=== PATIENT | female | born 1985 | race Caucasian/White ===

== ENCOUNTER → 2017-06-06 | Outpatient (CLI) | payer OTHER ==
[~2017-06-06] MED LIST: ACET1TAB17 PO; COPA1INJ SC; IBUP1TAB7 PO; LORT5TAB PO; NICO14DI3 TD; SUPETAB25 PO; VITA500055 PO; XANA0.5T PO
[2017-06-06 13:08] LABS: BASO # 0.1 10^3/uL (0.0-0.2); BASO % 0.9 % (0.0-1.0); EOS # 0.4 10^3/uL (0.0-0.50); IMMATURE GRANULOCYTE % 0.3 % (0-0); LYMPH # 1.6 10^3/uL (1.5-4.5); LYMPH % 27.8 % (24.0-44.0); MEAN CORPUSCULAR HEMOGLOBIN 29.7 pg (27.0-33.0); MEAN CORPUSCULAR HGB CONC 33.6 g/dl (32.0-36.5); MEAN CORPUSCULAR VOLUME 88.3 fl (80.0-96.0); MONO # 0.4 10^3/uL (0.0-0.8); MONO % 7.5 % (0.0-5.0); NEUTROPHILS # 3.3 10^3/uL (1.8-7.7); NEUTROPHILS % 56.5 % (36.0-66.0); PLATELET COUNT, AUTOMATED 340 10^3/uL (150-450); RED CELL DISTRIBUTION WIDTH 12.9 % (11.5-14.5); WHITE BLOOD COUNT 5.8 10^3/uL (4.0-10.0)
[2017-06-06 13:18] LABS: ALBUMIN 3.7 GM/DL (3.2-5.2); ALBUMIN/GLOBULIN RATIO 1.06 (1.00-1.93); ALKALINE PHOSPHATASE 69 U/L (45-117); ALT/SGPT 41 U/L (12-78); ANION GAP 7 MEQ/L (8-16); AST/SGOT 17 U/L (7-37); BILIRUBIN,TOTAL 0.2 MG/DL (0.2-1.0); BLOOD UREA NITROGEN 12 MG/DL (7-18); CALCIUM LEVEL 9.1 MG/DL (8.5-10.1); CARBON DIOXIDE LEVEL 28 MEQ/L (21-32); CHLORIDE LEVEL 104 MEQ/L (98-107); CREATININE FOR GFR 0.85 MG/DL (0.55-1.02); GLOMERULAR FILTRATION RATE > 60.0 (>60); GLUCOSE, FASTING 80 MG/DL (70-105); SODIUM LEVEL 139 MEQ/L (136-145); TOTAL PROTEIN 7.2 GM/DL (6.4-8.2)
== END ==
LOC: M LAB 12:25
PROVIDERS: ATTEND Nurse Practitioner
DX: G35 Multiple sclerosis (principal)

== ENCOUNTER 2018-05-17 12:50 | Emergency (ER) | payer OTHER ==
[2018-05-17 13:56] LABS: BASO % 0.6 % (0.0-1.0); EOS # 0.2 10^3/uL (0.0-0.50); HEMOGLOBIN 13.9 g/dl (12.0-15.5); IMMATURE GRANULOCYTE % 0.2 % (0-3.0); LYMPH # 1.6 10^3/uL (1.5-4.5); LYMPH % 24.3 % (24.0-44.0); MEAN CORPUSCULAR HEMOGLOBIN 30.5 pg (27.0-33.0); MEAN CORPUSCULAR HGB CONC 34.8 g/dl (32.0-36.5); MEAN CORPUSCULAR VOLUME 87.9 fl (80.0-96.0); MONO # 0.3 10^3/uL (0.0-0.8); MONO % 4.4 % (0.0-5.0); NEUTROPHILS # 4.3 10^3/uL (1.8-7.7); NEUTROPHILS % 67.5 % (36.0-66.0); PLATELET COUNT, AUTOMATED 369 10^3/uL (150-450); RED BLOOD COUNT 4.55 10^6/uL (4.00-5.40); RED CELL DISTRIBUTION WIDTH 12.2 % (11.5-14.5); WHITE BLOOD COUNT 6.4 10^3/uL (4.0-10.0)
[2018-05-17] MEDS: MORPHINE 2 MG/ML 1ML SYRINGE (J2270) IV (14:00)
[2018-05-17 14:14] LABS: INR 1.02; PROTHROMBIN TIME 13.5 SECONDS (12.1-14.4)
[2018-05-17 14:15] LABS: CONTROL LINE HCG INT CTR LINE PRESENT; HCG, SERUM QUALITATIVE NEGATIVE (NEGATIVE); PARTIAL THROMBOPLASTIN TIME 29.7 SECONDS (25.4-37.6)
[2018-05-17 14:18] LABS: ANION GAP 7 MEQ/L (8-16); BLOOD UREA NITROGEN 12 MG/DL (7-18); CALCIUM LEVEL 9.1 MG/DL (8.5-10.1); CARBON DIOXIDE LEVEL 25 MEQ/L (21-32); CHLORIDE LEVEL 105 MEQ/L (98-107); CK-MB VALUE MASS < 1.0 NG/ML (<3.6); CPK CREATINE PHOSPHOKINASE 102 U/L (26-192); CREATININE FOR GFR 0.76 MG/DL (0.55-1.30); GLOMERULAR FILTRATION RATE > 60.0 (>60); GLUCOSE, FASTING 99 MG/DL (70-100); MB/CK RELATIVE INDEX 0.98 (< OR =4); SODIUM LEVEL 137 MEQ/L (136-145); TROPONIN I < 0.02 NG/ML (< 0.10)
[2018-05-17] MEDS ORDERED: ISOVUE-370 76% 100ML VIAL (Q9967) As Ordered (14:36)
== END 2018-05-17 16:12 | disposition home or self-care (01) ==
LOC: M ED 12:50
DX: S29.012A Strain of muscle and tendon of back wall of thorax, initial encounter (principal); J43.9 Emphysema, unspecified; X58.XXXA Exposure to other specified factors, initial encounter; Y92.89 Other specified places as the place of occurrence of the external cause; G35 Multiple sclerosis; F41.9 Anxiety disorder, unspecified; F17.200 Nicotine dependence, unspecified, uncomplicated; Z79.899 Other long term (current) drug therapy
CPT/HCPCS: Q9967

== ENCOUNTER → 2018-05-17 | Outpatient (CLI) | payer OTHER | LOC: M LRY 11:30 | DX: R06.02 Shortness of breath (principal) | CPT/HCPCS: 71046 ==

== ENCOUNTER 2018-10-02 18:31 | Emergency (ER) | payer OTHER ==
[~2018-10-02] VITALS: Ht 162.6 cm; Wt 81.4 kg
[~2018-10-02 18:31] MED LIST changes: -ACET1TAB17 PO; +ACET1TAB55 PO; +CLON1TAB8; +PARO40TA2; +[UNRECOGNIZED DRUG - CODE]
[2018-10-02 18:32] VITALS: BP 137/83
[2018-10-02] MEDS ORDERED: GILE1CAP (18:42)
[2018-10-02] MEDS ORDERED: CLON0.5T8 (18:42)
[2018-10-02 20:26] LABS: HEMATOCRIT 36.4 % (36.0-47.0); HEMOGLOBIN 12.5 g/dl (12.0-15.5); MEAN CORPUSCULAR HEMOGLOBIN 30.2 pg (27.0-33.0); MEAN CORPUSCULAR HGB CONC 34.3 g/dl (32.0-36.5); MEAN CORPUSCULAR VOLUME 87.9 fl (80.0-96.0); PLATELET COUNT, AUTOMATED 323 10^3/uL (150-450); RED BLOOD COUNT 4.14 10^6/uL (4.00-5.40); WHITE BLOOD COUNT 5.7 10^3/uL (4.0-10.0)
[2018-10-02 20:41] LABS: HCG, SERUM QUALITATIVE NEGATIVE (NEGATIVE)
[2018-10-02 20:48] LABS: AMPHETAMINES LEVEL URINE NEGATIVE (NEGATIVE); BARBITURATES URINE NEGATIVE (NEGATIVE); BENZODIAZEPINES URINE NEGATIVE (NEGATIVE); CANNABINOIDS URINE POSITIVE (NEGATIVE); COCAINE METABOLITE URINE NEGATIVE (NEGATIVE); METHADONE URINE NEGATIVE (NEGATIVE); OPIATES URINE NEGATIVE (NEGATIVE); PHENCYCLIDINE URINE NEGATIVE (NEGATIVE)
[2018-10-02 21:11] LABS: ACETAMINOPHEN LEVEL < 2.0 UG/ML (10.0-30.0); ALBUMIN 3.9 GM/DL (3.2-5.2); ALT/SGPT 24 U/L (12-78); BILIRUBIN,DIRECT < 0.1 MG/DL (0.0-0.2); BILIRUBIN,TOTAL 0.2 MG/DL (0.2-1.0); BLOOD UREA NITROGEN 11 MG/DL (7-18); CALCIUM LEVEL 8.5 MG/DL (8.5-10.1); CARBON DIOXIDE LEVEL 24 MEQ/L (21-32); CHLORIDE LEVEL 107 MEQ/L (98-107); CREATININE FOR GFR 0.74 MG/DL (0.55-1.30); ETHYL ALCOHOL (ETHANOL) 0.003 % (0.000-0.010); GLOMERULAR FILTRATION RATE > 60.0 (>60); GLUCOSE, FASTING 101 MG/DL (70-100); POTASSIUM SERUM 3.8 MEQ/L (3.5-5.1); SALICYLATE LEVEL < 1.7 MG/DL (5.0-30.0); SODIUM LEVEL 138 MEQ/L (136-145); THYROID STIMULATING HORMONE 0.562 uIU/ML (0.358-3.740); TOTAL PROTEIN 7.4 GM/DL (6.4-8.2)
[2018-10-02] MEDS ORDERED: clonazePAM 1 MG TAB PO ONE (22:30)
== END 2018-10-02 22:53 | disposition home or self-care (01) ==
LOC: M ED 18:31
DX: F43.0 Acute stress reaction (principal); G35 Multiple sclerosis; Z79.899 Other long term (current) drug therapy
CPT/HCPCS: 36415; 80048; 80076; 80307; 84443; 84703; 85027; 99284; G0480

== ENCOUNTER → 2018-10-08 | Outpatient (CLI) | payer OTHER ==
[~2018-10-08] MED LIST changes: +CLON0.5T8; +GILE1CAP
--- NOTE | 2018-10-08 16:03 | REP ---
RIGHT BREAST MAMMOGRAM WITH 3D TOMOSYNTHESIS AND RIGHT BREAST ULTRASOUND: Right breast mammogram performed with 3D tomosynthesis. There is reportedly a history of recent palpable lump in the region of 12 o'clock. There are no prior studies. Moderately dense fibroglandular tissue is present in the right breast. No mass or clustered microcalcifications are seen. Real-time sonographic evaluation of right breast performed in the region of 11 to 1 o'clock. Dense fibroglandular tissue is seen without a cystic or solid nodule. IMPRESSION: BIRADS 2: BI-RADS/ACR category 2 mammogram. Benign Findings. Dense breast parenchyma. No mammographic or sonographic evidence of a mass in the region of the palpable lump superiorly in the right breast. No mass or clustered microcalcifications elsewhere in the right breast. Baseline bilateral mammogram recommended at age 39. This mammogram was interpreted with the aid of an FDA-approved computer-aided detection system. The patient states she/he had a clinical breast exam in 09/2018. The patient letter being requested is M2. Schuyler lifetime risk of breast cancer 9.7%. Electronically Signed by Luis Barnes MD 10/08/2018 04:36 P
== END ==
LOC: M RAD 13:19
PROVIDERS: ATTEND Family Medicine
DX: Z86.018 Personal history of other benign neoplasm (principal)
CPT/HCPCS: 76642; 77065; G0279

== ENCOUNTER 2020-06-29 10:05 | Emergency (ER) | payer OTHER ==
[~2020-06-29] VITALS: Ht 160 cm; Wt 87.0 kg
[~2020-06-29 10:05] MED LIST changes: +CLON0.5T2; -CLON0.5T8; -PARO40TA2; +PARO40TA2 PO
[2020-06-29 10:07] VITALS: BP 147/74
--- NOTE | 2020-06-29 10:40 | REP ---
INDICATION: Left rib pain/r/o pneumo COMPARISON: 05/17/2018 TECHNIQUE: PA and lateral. FINDINGS: The mediastinum and cardiac silhouette are normal. The lung currie are clear and without acute consolidation, effusion, or pneumothorax. The skeletal structures are intact and normal. IMPRESSION: No acute cardiopulmonary process. <Electronically signed by Chaz Bautista > 06/29/20 1037
[2020-06-29] MEDS ORDERED: CYCL-707 PO (10:54)
[2020-06-29] MEDS ORDERED: KETOROLAC 60MG 2ML VIAL IM ONE (11:00)
== END 2020-06-29 11:59 | disposition home or self-care (01) ==
LOC: M ED 10:05
DX: S29.012A Strain of muscle and tendon of back wall of thorax, initial encounter (principal); X50.0XXA Overexertion from strenuous movement or load, initial encounter; Y92.9 Unspecified place or not applicable; Y99.0 Civilian activity done for income or pay; Y93.9 Activity, unspecified; I10 Essential (primary) hypertension; Z79.899 Other long term (current) drug therapy
CPT/HCPCS: 71046; 96372; 99283; J1885

== ENCOUNTER → 2020-12-29 | Outpatient (REF) | payer OTHER ==
[~2020-12-29] MED LIST changes: +CYCL-707 PO
== END ==
LOC: M SFHCLERA 15:47
PROVIDERS: ATTEND Nurse Practitioner Family
DX: J02.9 Acute pharyngitis, unspecified (principal)

== ENCOUNTER → 2021-03-17 | Outpatient (REF) | payer OTHER ==
[2021-03-17 13:06] LABS: BACTERIA, URINE AUTO NEGATIVE (NEGATIVE); MUCUS, URINE SMALL (NEGATIVE); RBC, URINE AUTO 0 /HPF (0-3); SQUAMOUS EPITHELIAL CELL UR AU 0 /HPF (0-6); WBC, URINE AUTO 1 /HPF (0-3)
== END ==
LOC: M SMT 12:38
PROVIDERS: ATTEND Specialist
DX: N39.46 Mixed incontinence (principal)

== ENCOUNTER → 2022-09-14 | Outpatient (CLI) | payer OTHER | LOC: M RAD 10:38 | PROVIDERS: ATTEND Physician Assistant Medical | DX: R10.2 Pelvic and perineal pain (principal) ==

== ENCOUNTER → 2024-10-22 | Outpatient (CLI) | payer OTHER | LOC: M RAD 10:15 | PROVIDERS: ATTEND Nurse Practitioner Family | DX: M79.661 Pain in right lower leg (principal) ==

== ENCOUNTER → 2025-03-12 | Outpatient (REF) | payer OTHER ==
[2025-03-12 16:06] LABS: Trichomonas vaginalis (AMP) POSITIVE (NEGATIVE)
[2025-03-12 16:43] LABS: GC DNA AMPLIFICATION NEGATIVE (NEGATIVE)
== END ==
LOC: M PLALAB 09:50
PROVIDERS: ATTEND Nurse Practitioner Family
DX: N89.8 Other specified noninflammatory disorders of vagina (principal)

== ENCOUNTER → 2025-06-10 | Outpatient (CLI) | payer OTHER | LOC: M WHC 08:28 | PROVIDERS: ATTEND Nurse Practitioner Family | DX: Z12.31 Encounter for screening mammogram for malignant neoplasm of breast (principal) ==

== ENCOUNTER → 2025-06-10 | Outpatient (REF) | payer OTHER ==
[2025-06-10 11:42] LABS: Trichomonas vaginalis (AMP) NOT DETECTED (NEGATIVE)
[2025-06-10 12:06] LABS: GC DNA AMPLIFICATION NEGATIVE (NEGATIVE)
[2025-06-12 18:27] LABS: HPV APTIMA Detected (Not Detected)
== END ==
LOC: M SFHCWAGY 10:11
PROVIDERS: ATTEND Nurse Practitioner Family
DX: Z12.4 Encounter for screening for malignant neoplasm of cervix (principal); Z11.3 Encounter for screening for infections with a predominantly sexual mode of transmission

== ENCOUNTER → 2025-06-16 | Outpatient (REF) | payer OTHER | LOC: M SFHCWAGY 13:29 | PROVIDERS: ATTEND Nurse Practitioner Family | DX: N92.1 Excessive and frequent menstruation with irregular cycle (principal) ==